=== PATIENT | female | born 1940 | race Two or more races ===

== ENCOUNTER 2021-12-16 17:43 | Inpatient (IN) ==
[2021-12-16] MEDS ORDERED: amLODIPine 5 MG TABLET PO STA (18:21)
[2021-12-16 19:05] LABS: Basophils % 0.7 % (0.0-0.8); Eosinophils # 0.2 10*3/uL (0.0-0.87); Eosinophils % 3.2 % (0.00-10.9); Hematocrit 29.8 VOL% (35.7-47.0); Immature Granulocytes % 0.4 %; Immature Granulocytes Absolute 0.02 #; Lymphocytes # 1.6 10*3/uL (1.4-4.0); Lymphocytes % 28.7 % (21.3-54.2); Mean Corpuscular HGB Conc 33.6 GM/DL (32-36); Mean Platelet Volume 11.7 FL (9.6-12.0); Monocytes # 0.4 10*3/uL (0.11-0.8); Monocytes % 7.6 % (1.7-12.7); Neutrophils % 59.4 % (38.7-73.9); Platelet Count 206 T/CUMM (130-400); Red Blood Count 3.04 MC/CUMM (3.8-5.5); White Blood Count 5.7 T/CUMM (4-12)
[2021-12-16 19:46] LABS: Alanine Aminotransferase 18 U/L (13-56); Albumin 3.9 G/DL (3.4-5.0); Alkaline Phosphatase 35 U/L (45-117); Aspartate Amino Transferase 17 U/L (0-37); Blood Urea Nitrogen 20 MG/DL (7-18); Calcium 9.3 MG/DL (8.5-10.1); Carbon Dioxide 24 MMOL/L (21-32); Chloride 107 MMOL/L (98-107); Glucose 107 MG/DL (74-106); Osmolality,Calculated 279.5 MOS/KG (273-304); Sodium 139 MMOL/L (136-145); Total Protein 7.5 G/DL (6.4-8.2)
[2021-12-16 20:27] LABS: Bacteria,Urine Occasional /HPF (Few); Glucose,Urine (UA) Negative (Negative); Hyaline Casts,Urine 29 /LPF (0-3); Mucus,Urine Occasional /LPF (Occasional); Protein,Urine 100 mg/dL (Negative); RBC,Urine 4 /HPF (0-4); Squamous Epithelial Cell,Urine Occasional /HPF (0-10); Urine Appearance Clear (Clear); Urine Color Yellow (Yellow); Urine pH 5.5 (4.5-8.0)
[2021-12-16 20:28] LABS: Bilirubin,Urine Negative (Negative); Blood, Urine Trace mg/dL (Negative); Ketones,Urine Trace mg/dL (Negative); Nitrite,Urine Negative (Negative); Urine Urobilinogen 0.2 eU/dL (<2.0)
[2021-12-16] MEDS ORDERED: diphenhydrAMINE CAP 25 MG CAPSULE PO PRN (20:31)
[2021-12-16] MEDS ORDERED: ONDANSETRON 4 MG/2 ML VIAL IV PRN (20:31)
[2021-12-16] MEDS ORDERED: hydrALAZINE 20 MG/1 ML VIAL IV PRN (20:31)
[2021-12-16] MEDS ORDERED: guaiFENesin/DM ER 600-30 MG TABLET PO PRN (20:31)
[2021-12-16] MEDS ORDERED: ACETAMINOPHEN 325 MG TABLET PO PRN (20:31)
[2021-12-16] MEDS ORDERED: BISACODYL 5 MG TABLET PO PRN (20:31)
[2021-12-16] MEDS ORDERED: DEXTROSE 50% 25 GM/50 ML VIAL IV PRN (20:31)
[2021-12-16] MEDS ORDERED: GLUCAGON 1 MG VIAL IM PRN ×2 (20:31)
[2021-12-16] MEDS ORDERED: NICOTINE 21 MG/24 HR PATCH TRANSDERM PRN (20:31)
[2021-12-16] MEDS ORDERED: DEXTROSE 10% 250 ML BAG IV PRN (20:40)
[2021-12-16] MEDS ORDERED: ZALEPLON 5 MG CAPSULE PO PRN (21:00)
[2021-12-16] MEDS: SODIUM CHLORIDE 0.9% 1,000 ML IV SCH (22:53)
[2021-12-16] MEDS: HEPARIN 5,000 UNIT/1 ML VIAL SUBCUT SCH (22:53)
[2021-12-16] MEDS: INSULIN LISPRO 100 UNIT/ML SUBCUT SCH (22:57)
[2021-12-16 23:02] LABS: Barbiturates Screen,Urine Negative (Negative); Benzodiazepines Screen,Urine Negative (Negative); Cannabinoid Screen,Urine Positive (Negative); Opiate Screen,Urine Negative (Negative); Phencyclidine Screen,Urine Negative (Negative)
[2021-12-17] MEDS: cefTRIAXone 1,000 MG in SODIUM CHLORIDE 0.9% 100 ML IV SCH (01:04)
[2021-12-17 03:53] LABS: Basophils % 0.5 % (0.0-0.8); Eosinophils # 0.4 10*3/uL (0.0-0.87); Eosinophils % 4.5 % (0.00-10.9); Hematocrit 30.6 VOL% (35.7-47.0); Hemoglobin 10.2 GM/DL (12.0-16.0); Immature Granulocytes % 0.3 %; Immature Granulocytes Absolute 0.02 #; Lymphocytes # 2.9 10*3/uL (1.4-4.0); Lymphocytes % 37.1 % (21.3-54.2); Mean Corpuscular HGB Conc 33.3 GM/DL (32-36); Mean Corpuscular Volume 98.7 FL (87-102); Mean Platelet Volume 12.2 FL (9.6-12.0); Monocytes # 0.6 10*3/uL (0.11-0.8); Monocytes % 7.1 % (1.7-12.7); Neutrophils % 50.5 % (38.7-73.9); Platelet Count 217 T/CUMM (130-400); White Blood Count 7.7 T/CUMM (4-12)
[2021-12-17 04:03] LABS: Calcium 9.3 MG/DL (8.5-10.1); Osmolality,Calculated 279.7 MOS/KG (273-304); Potassium 3.4 MMOL/L (3.5-5.1)
[2021-12-17] MEDS: PANTOPRAZOLE 40 MG TABLET PO SCH (06:47)
[2021-12-17] MEDS ORDERED: POTASSIUM CHLORIDE 20 MEQ TABLET PO ONE (07:31)
[2021-12-17] MEDS: INSULIN LISPRO 100 UNIT/ML SUBCUT SCH ×4 (08:28→21:35)
[2021-12-17] MEDS: HEPARIN 5,000 UNIT/1 ML VIAL SUBCUT SCH ×2 (09:28→21:41)
[2021-12-17] MEDS: SODIUM CHLORIDE 0.9% 1,000 ML IV SCH (21:41)
[2021-12-18] MEDS: cefTRIAXone 1,000 MG in SODIUM CHLORIDE 0.9% 100 ML IV SCH (01:30)
[2021-12-18 04:10] LABS: Basophils % 0.4 % (0.0-0.8); Eosinophils # 0.4 10*3/uL (0.0-0.87); Eosinophils % 7.4 % (0.00-10.9); Hematocrit 26.2 VOL% (35.7-47.0); Hemoglobin 8.5 GM/DL (12.0-16.0); Immature Granulocytes % 0.2 %; Immature Granulocytes Absolute 0.01 #; Lymphocytes # 1.8 10*3/uL (1.4-4.0); Lymphocytes % 33.6 % (21.3-54.2); Mean Corpuscular HGB Conc 32.4 GM/DL (32-36); Mean Platelet Volume 11.8 FL (9.6-12.0); Monocytes # 0.5 10*3/uL (0.11-0.8); Monocytes % 8.5 % (1.7-12.7); Neutrophils % 49.9 % (38.7-73.9); Platelet Count 175 T/CUMM (130-400); Red Blood Count 2.62 MC/CUMM (3.8-5.5); Red Cell Distribution Width 13.2 % (9.3-17.3); White Blood Count 5.3 T/CUMM (4-12)
[2021-12-18 04:42] LABS: Calcium 8.4 MG/DL (8.5-10.1); Osmolality,Calculated 280.4 MOS/KG (273-304); Potassium 4.1 MMOL/L (3.5-5.1)
[2021-12-18] MEDS: PANTOPRAZOLE 40 MG TABLET PO SCH (06:11)
[2021-12-18] MEDS: INSULIN LISPRO 100 UNIT/ML SUBCUT SCH ×3 (08:52→16:33)
[2021-12-18] MEDS: amLODIPine 10 MG TABLET PO SCH (08:53)
[2021-12-18] MEDS: HEPARIN 5,000 UNIT/1 ML VIAL SUBCUT SCH (08:53)
[2021-12-18] MEDS: CYANOCOBALAMIN 500 MCG TABLET PO SCH (08:53)
[2021-12-18] MEDS ORDERED: OLANZapine 10 MG VIAL IM ONE (09:54)
[2021-12-18] MEDS: SODIUM CHLORIDE 0.9% 1,000 ML IV SCH (12:55)
[2021-12-18] MEDS ORDERED: QUEtiapine 25 MG TABLET PO SCH (21:00)
[2021-12-18] MEDS: QUEtiapine 25 MG TABLET PO SCH (21:45)
[2021-12-19] MEDS: HEPARIN 5,000 UNIT/1 ML VIAL SUBCUT SCH ×3 (00:02→21:45)
[2021-12-19] MEDS: INSULIN LISPRO 100 UNIT/ML SUBCUT SCH ×5 (00:02→21:45)
[2021-12-19] MEDS: cefTRIAXone 1,000 MG in SODIUM CHLORIDE 0.9% 100 ML IV SCH (00:55)
[2021-12-19 05:15] LABS: Basophils % 0.4 % (0.0-0.8); Eosinophils # 0.4 10*3/uL (0.0-0.87); Eosinophils % 7.1 % (0.00-10.9); Hematocrit 26.5 VOL% (35.7-47.0); Hemoglobin 8.6 GM/DL (12.0-16.0); Immature Granulocytes % 0.2 %; Immature Granulocytes Absolute 0.01 #; Lymphocytes # 1.7 10*3/uL (1.4-4.0); Lymphocytes % 34.3 % (21.3-54.2); Mean Corpuscular HGB Conc 32.5 GM/DL (32-36); Mean Corpuscular Volume 100.4 FL (87-102); Mean Platelet Volume 11.7 FL (9.6-12.0); Monocytes # 0.4 10*3/uL (0.11-0.8); Monocytes % 7.7 % (1.7-12.7); Neutrophils % 50.3 % (38.7-73.9); Platelet Count 169 T/CUMM (130-400); Red Blood Count 2.64 MC/CUMM (3.8-5.5); Red Cell Distribution Width 13.2 % (9.3-17.3); White Blood Count 5.1 T/CUMM (4-12)
[2021-12-19 05:37] LABS: % Iron Saturation 25.9 % (18-50); Calcium 8.7 MG/DL (8.5-10.1); Ferritin 31.6 ng/mL (8-252); Osmolality,Calculated 279.4 MOS/KG (273-304)
[2021-12-19] MEDS: PANTOPRAZOLE 40 MG TABLET PO SCH (06:16)
[2021-12-19] MEDS ORDERED: REGADENOSON 0.4 MG/5 ML SYRINGE IV ONE (09:08)
[2021-12-19] MEDS: amLODIPine 10 MG TABLET PO SCH (10:48)
[2021-12-19] MEDS: QUEtiapine 25 MG TABLET PO SCH ×2 (10:48→21:45)
[2021-12-19] MEDS: CYANOCOBALAMIN 500 MCG TABLET PO SCH (10:49)
[2021-12-20] MEDS: PANTOPRAZOLE 40 MG TABLET PO SCH (07:52)
[2021-12-20] MEDS: SODIUM CHLORIDE 0.9% 1,000 ML IV SCH ×2 (08:32→18:50)
[2021-12-20] MEDS: INSULIN LISPRO 100 UNIT/ML SUBCUT SCH ×4 (08:33→21:59)
[2021-12-20] MEDS: QUEtiapine 25 MG TABLET PO SCH ×2 (09:38→21:59)
[2021-12-20] MEDS: amLODIPine 10 MG TABLET PO SCH (09:38)
[2021-12-20] MEDS: HEPARIN 5,000 UNIT/1 ML VIAL SUBCUT SCH ×2 (09:38→22:00)
[2021-12-20] MEDS: CYANOCOBALAMIN 500 MCG TABLET PO SCH (09:39)
[2021-12-21] MEDS: PANTOPRAZOLE 40 MG TABLET PO SCH (07:43)
[2021-12-21] MEDS: HEPARIN 5,000 UNIT/1 ML VIAL SUBCUT SCH (10:33)
[2021-12-21] MEDS: INSULIN LISPRO 100 UNIT/ML SUBCUT SCH ×4 (10:33→21:40)
[2021-12-21] MEDS: QUEtiapine 25 MG TABLET PO SCH ×2 (10:34→21:39)
[2021-12-21] MEDS: amLODIPine 10 MG TABLET PO SCH (10:34)
[2021-12-21] MEDS: CYANOCOBALAMIN 500 MCG TABLET PO SCH (10:34)
[2021-12-21] MEDS: SODIUM CHLORIDE 0.9% 1,000 ML IV SCH (12:28)
[2021-12-22] MEDS: PANTOPRAZOLE 40 MG TABLET PO SCH (06:01)
[2021-12-22] MEDS: INSULIN LISPRO 100 UNIT/ML SUBCUT SCH ×4 (08:19→21:00)
[2021-12-22] MEDS: CYANOCOBALAMIN 500 MCG TABLET PO SCH (09:30)
[2021-12-22] MEDS: amLODIPine 10 MG TABLET PO SCH (09:30)
[2021-12-22] MEDS: QUEtiapine 25 MG TABLET PO SCH ×2 (09:30→21:00)
[2021-12-23 05:48] LABS: Basophils % 0.5 % (0.0-0.8); Eosinophils # 0.3 10*3/uL (0.0-0.87); Eosinophils % 4.8 % (0.00-10.9); Hematocrit 28.6 VOL% (35.7-47.0); Hemoglobin 9.2 GM/DL (12.0-16.0); Immature Granulocytes % 0.3 %; Immature Granulocytes Absolute 0.02 #; Lymphocytes # 1.7 10*3/uL (1.4-4.0); Lymphocytes % 26.3 % (21.3-54.2); Mean Corpuscular HGB Conc 32.2 GM/DL (32-36); Mean Corpuscular Volume 101.4 FL (87-102); Mean Platelet Volume 11.9 FL (9.6-12.0); Monocytes # 0.6 10*3/uL (0.11-0.8); Monocytes % 8.5 % (1.7-12.7); Neutrophils % 59.6 % (38.7-73.9); Platelet Count 187 T/CUMM (130-400); Red Blood Count 2.82 MC/CUMM (3.8-5.5); Red Cell Distribution Width 13.2 % (9.3-17.3); White Blood Count 6.5 T/CUMM (4-12)
[2021-12-23 06:02] LABS: Calcium 9.1 MG/DL (8.5-10.1); Osmolality,Calculated 276.8 MOS/KG (273-304); Potassium 4.4 MMOL/L (3.5-5.1)
[2021-12-23] MEDS: PANTOPRAZOLE 40 MG TABLET PO SCH (06:32)
[2021-12-23] MEDS: INSULIN LISPRO 100 UNIT/ML SUBCUT SCH ×4 (07:58→22:32)
[2021-12-23] MEDS: amLODIPine 10 MG TABLET PO SCH (08:48)
[2021-12-23] MEDS: CYANOCOBALAMIN 500 MCG TABLET PO SCH (08:50)
[2021-12-23] MEDS: QUEtiapine 25 MG TABLET PO SCH ×2 (08:50→22:32)
[2021-12-24] MEDS: INSULIN LISPRO 100 UNIT/ML SUBCUT SCH ×4 (07:59→21:39)
[2021-12-24] MEDS: CYANOCOBALAMIN 500 MCG TABLET PO SCH (09:31)
[2021-12-24] MEDS: PANTOPRAZOLE 40 MG TABLET PO SCH (09:31)
[2021-12-24] MEDS: amLODIPine 10 MG TABLET PO SCH (09:31)
[2021-12-24] MEDS: QUEtiapine 25 MG TABLET PO SCH ×2 (09:31→21:39)
[2021-12-25] MEDS: PANTOPRAZOLE 40 MG TABLET PO SCH (05:59)
[2021-12-25] MEDS: INSULIN LISPRO 100 UNIT/ML SUBCUT SCH ×2 (10:12→13:24)
[2021-12-25] MEDS: QUEtiapine 25 MG TABLET PO SCH ×2 (10:13→20:20)
[2021-12-25] MEDS: amLODIPine 10 MG TABLET PO SCH (10:13)
[2021-12-25] MEDS: CYANOCOBALAMIN 500 MCG TABLET PO SCH (10:14)
[2021-12-26] MEDS: PANTOPRAZOLE 40 MG TABLET PO SCH (05:43)
[2021-12-26] MEDS ORDERED: TUBERCULIN SKIN TEST 0.1 ML SYRINGE INTRADERM ONE (09:46)
[2021-12-26] MEDS: amLODIPine 10 MG TABLET PO SCH (10:19)
[2021-12-26] MEDS: CYANOCOBALAMIN 500 MCG TABLET PO SCH (10:20)
[2021-12-26] MEDS: QUEtiapine 25 MG TABLET PO SCH ×2 (10:20→20:17)
[2021-12-26] MEDS ORDERED: HYDROCORTISONE 1% CREAM 28 GM TUBE TOP PRN (10:50)
[2021-12-27] MEDS: PANTOPRAZOLE 40 MG TABLET PO SCH (05:43)
[2021-12-27] MEDS: amLODIPine 10 MG TABLET PO SCH (09:42)
[2021-12-27] MEDS: CYANOCOBALAMIN 500 MCG TABLET PO SCH (09:42)
[2021-12-27] MEDS: QUEtiapine 25 MG TABLET PO SCH ×2 (09:42→20:23)
[2021-12-28] MEDS: PANTOPRAZOLE 40 MG TABLET PO SCH (06:18)
[2021-12-28] MEDS: amLODIPine 10 MG TABLET PO SCH (09:10)
[2021-12-28] MEDS: QUEtiapine 25 MG TABLET PO SCH ×2 (09:10→21:00)
[2021-12-28] MEDS: CYANOCOBALAMIN 500 MCG TABLET PO SCH (09:10)
[2021-12-29] MEDS: PANTOPRAZOLE 40 MG TABLET PO SCH (07:09)
[2021-12-29 08:12] LABS: Basophils # 0.1 10*3/uL (0.0-0.2); Eosinophils # 0.3 10*3/uL (0.0-0.87); Eosinophils % 5.1 % (0.00-10.9); Hematocrit 29.9 VOL% (35.7-47.0); Hemoglobin 9.7 GM/DL (12.0-16.0); Immature Granulocytes % 0.3 %; Immature Granulocytes Absolute 0.02 #; Lymphocytes # 2.1 10*3/uL (1.4-4.0); Lymphocytes % 36.2 % (21.3-54.2); Mean Corpuscular HGB Conc 32.4 GM/DL (32-36); Mean Corpuscular Volume 100.3 FL (87-102); Mean Platelet Volume 11.2 FL (9.6-12.0); Monocytes # 0.5 10*3/uL (0.11-0.8); Monocytes % 8.8 % (1.7-12.7); Neutrophils % 48.6 % (38.7-73.9); Platelet Count 243 T/CUMM (130-400); Red Blood Count 2.98 MC/CUMM (3.8-5.5); Red Cell Distribution Width 12.9 % (9.3-17.3); White Blood Count 5.9 T/CUMM (4-12)
[2021-12-29] MEDS: CYANOCOBALAMIN 500 MCG TABLET PO SCH (08:29)
[2021-12-29] MEDS: amLODIPine 10 MG TABLET PO SCH (08:30)
[2021-12-29] MEDS: QUEtiapine 25 MG TABLET PO SCH (08:30)
[2021-12-29 08:32] LABS: Calcium 9.3 MG/DL (8.5-10.1); Osmolality,Calculated 280.8 MOS/KG (273-304); Potassium 4.6 MMOL/L (3.5-5.1)
[2021-12-29 12:49] VITALS: BP 129/70
== END 2021-12-29 15:35 | DRG 884 ==
LOC: EDUNIT# → N.ED 17:43 → N.EDINP 17:43 → SUATTDRO 20:31 → N.TELES 12-17 15:06 → SUATTDRO 12-18 12:47
PROVIDERS: ADMIT Internal Medicine; ATTEND Family Medicine